=== PATIENT | male | born 2000 | race Native Hawaiian/Other Pacific Islander ===

== ENCOUNTER 2021-11-04 13:37 | Outpatient (CLI) | payer BC, OTHER ==
[~2021-11-04] VITALS: Ht 180.3 cm; Wt 93.0 kg
== END 2021-11-04 21:26 | disposition home or self-care (01) ==
LOC: INF 13:37
PROVIDERS: ATTEND Family Medicine
DX: Z23 Encounter for immunization (principal); U07.1 COVID-19
CPT/HCPCS: 96365; M0244